=== PATIENT | female | born 1960 | race Caucasian/White ===

== ENCOUNTER 2022-05-04 20:07 | Emergency (ER) | payer SELFPAY ==
[2022-05-04 21:41] LABS: ALT (SGPT) 29 U/L (8-55); AST (SGOT) 32 U/L (5-34); Albumin 4.3 g/dL (3.5-5.0); Alkaline Phosphatase 179 U/L (40-110); Anion Gap 20 mmol/L (10-20); BUN (Urea Nitrogen) 23 mg/dL (9.8-20.1); Bilirubin, Total 0.3 mg/dL (0.2-1.2); CK (CPK) 738 U/L (29-168); Calc. Creatinine Clearance 0 mL/min (70-130); Calcium 9.7 mg/dL (7.8-10.44); Carbon Dioxide 22 mmol/L (22-29); Chloride 103 mmol/L (98-107); Globulin 3.6 g/dL (2.4-3.5); Glucose 135 mg/dL (70-105); Potassium 3.5 mmol/L (3.5-5.1); Protein, Total 7.9 g/dL (6.0-8.3); Sodium 141 mmol/L (136-145)
[2022-05-04] MEDS ORDERED: Morphine 2 MG/ML VIAL ONE (21:41)
[2022-05-04 21:42] LABS: Band 3 % (5-11); Hemoglobin 13.9 g/dL (12.0-16.0); Lymphocytes 3 % (21-51); MDiff Complete? YES; Mean Corpuscular HGB CONC 33.2 g/dL (32.0-36.0); Mean Corpuscular Hemoglobin 26.6 pg (27.0-31.0); Mean Corpuscular Volume 80.1 fL (78.0-98.0); Mean Platelet Volume 10.8 fL (7.4-10.4); Monocytes 5 % (0-10); Neutrophil 89 % (42-75); Platelet Count 254 thou/uL (130-400); Prothrombin Time 13.2 sec (12.0-14.7); RBC Morphology Normal; Red Blood Cell (RBC) Count 5.23 mill/uL (4.20-5.40); White Blood Cell (WBC) Count 19.6 thou/uL (4.8-10.8)
[2022-05-04 22:24] LABS: SARS-CoV-2 NAA Rapid Test Not Detected (NotDetected)
[2022-05-04 22:29] LABS: CKMB 17.4 ng/mL (0-6.6)
== END 2022-05-04 23:00 | disposition short-term general hospital (02) ==
LOC: MADERS 20:07
DX: I60.7 Nontraumatic subarachnoid hemorrhage from unspecified intracranial artery (principal); I10 Essential (primary) hypertension; G43.909 Migraine, unspecified, not intractable, without status migrainosus
CPT/HCPCS: 70450; 80053; 82550; 82553; 84484; 85025; 85610; 85730; 93005; 94760; 96374; J2270; U0002